=== PATIENT | male | born 1985 | race Caucasian/White ===

== ENCOUNTER 2020-05-31 14:00 | Inpatient (IN) ==
[2020-05-31] MEDS ORDERED: Haloperidol Lactate 5 MG/ML VIAL IM PRN (17:05)
[2020-05-31] MEDS ORDERED: Mag Hydrox/Al Hydrox/Simeth 30 ML UDC PO PRN (17:05)
[2020-05-31] MEDS ORDERED: haloperidoL 5 MG TABLET PO PRN (17:05)
[2020-05-31] MEDS ORDERED: MOM Conc 10 ML UD.LIQ PO PRN (17:05)
[2020-05-31] MEDS ORDERED: *HR* LORazepam 1 MG TABLET PO PRN (17:05)
[2020-05-31] MEDS ORDERED: Ibuprofen 400 MG TABLET PO PRN (17:05)
[2020-05-31] MEDS ORDERED: *HR* LORazepam 2 MG/ML VIAL IM PRN (17:05)
[2020-05-31] MEDS: hydrOXYzine pamoate 25 MG CAPSULE PO PRN ×2 (18:10→21:05)
[2020-05-31] MEDS: Nicotine 14 MG PATCH.TD24 TD SCH (18:10)
[2020-05-31] MEDS: traZODone 50 MG TABLET PO PRN (21:05)
[2020-06-01] MEDS ORDERED: FLUoxetine 20 MG CAPSULE PO SCH (09:00)
[2020-06-01] MEDS: Nicotine 14 MG PATCH.TD24 TD SCH (09:02)
[2020-06-01] MEDS: traZODone 50 MG TABLET PO PRN (20:11)
[2020-06-01] MEDS: hydrOXYzine pamoate 25 MG CAPSULE PO PRN (20:12)
[2020-06-01] MEDS: Gabapentin 100 MG CAPSULE PO SCH (20:12)
[2020-06-01] MEDS ORDERED: ARIPiprazole 5 MG TABLET PO SCH (21:00)
[2020-06-02] MEDS: Nicotine 14 MG PATCH.TD24 TD SCH (08:20)
[2020-06-02] MEDS: Gabapentin 100 MG CAPSULE PO SCH (08:20)
[2020-06-02 08:33] VITALS: BP 124/80
== END 2020-06-02 14:15 | disposition home or self-care (01) | DRG 753 ==
LOC: 1ANU 14:00
PROVIDERS: ADMIT Psychiatry & Neurology Forensic Psychiatry; ATTEND Psychiatry & Neurology Forensic Psychiatry